=== PATIENT | male | born 1980 | race Asian ===

== ENCOUNTER 2024-08-01 19:36 | Emergency (ER) | payer OTHER ==
[2024-08-01 19:43] VITALS: BP 114/82; PULSE 95; RESP 20; TEMP 98.4; BMI 23.7
[2024-08-01] MEDS ORDERED: KETOROLAC TROMETHAMINE 30 MG/1 ML VIAL ONE (20:27)
[2024-08-01] MEDS ORDERED: ACETAMINOPHEN 500 MG TABLET (FP) ONE (20:27)
[2024-08-01] MEDS ORDERED: METHOCARBAMOL 500 MG TABLET ONE (20:27)
[2024-08-01] MEDS: KETOROLAC TROMETHAMINE 30 MG/1 ML VIAL IM ONE (20:34)
[2024-08-01] MEDS: METHOCARBAMOL 500 MG TABLET PO ONE (20:34)
[2024-08-01] MEDS: ACETAMINOPHEN 500 MG TABLET (FP) PO ONE (20:35)
== END 2024-08-01 21:08 | disposition home or self-care (01) ==
LOC: JERFT 19:36
PROC: 3E0233Z Introduction of Anti-inflammatory into Muscle, Percutaneous Approach (ICD-10-PCS; principal; 2024-08-01)
DX: M54.42 Lumbago with sciatica, left side (principal); X50.0XXA Overexertion from strenuous movement or load, initial encounter
CPT/HCPCS: 96372; 99284-25